=== PATIENT | male | born 1945 | race Caucasian/White ===

== ENCOUNTER → 2016-07-03 | Outpatient (CLI) | payer OTHER, MEDICARE | LOC: BHCLAF 15:30 | PROVIDERS: ATTEND Internal Medicine Cardiovascular Disease | DX: E78.5 Hyperlipidemia, unspecified (principal); I63.9 Cerebral infarction, unspecified; Z95.4 Presence of other heart-valve replacement; Z95.2 Presence of prosthetic heart valve | CPT/HCPCS: 93005-PO ==

== ENCOUNTER → 2016-08-17 | Outpatient (CLI) | payer OTHER, MEDICARE | LOC: BHCLAF 14:45 | PROVIDERS: ATTEND Internal Medicine Cardiovascular Disease | DX: Z95.2 Presence of prosthetic heart valve (principal); Z95.4 Presence of other heart-valve replacement; I38 Endocarditis, valve unspecified | CPT/HCPCS: 93306-PO ==

== ENCOUNTER 2016-09-12 14:33 | Emergency (ER) | payer OTHER, MEDICARE ==
[2016-09-12 14:43] VITALS: TEMP 97.9
[2016-09-12] MEDS ORDERED: NS 1,000 ML IV ONE (14:48)
--- NOTE | 2016-09-12 14:50 | CPEKG ---
Heart Rate: 74 RR Interval: 811 P-R Interval: 216 QRSD Interval: 98 QT Interval: 404 QTC Interval: 449 P [place]: -60 QRS [place]: -2 T Wave [place]: 75 EKG Severity - ABNORMAL ECG - EKG Impression: SINUS OR ECTOPIC ATRIAL RHYTHM EKG Impression: MULTIFORM VENTRICULAR PREMATURE COMPLEXES EKG Impression: PROBABLE LEFT ATRIAL ABNORMALITY Electronically Signed By: Vladimir Douglass 12-Sep-2016 14:54:58
--- NOTE | 2016-09-12 14:54 | EDPHY ---
H & P <Brandt Dias - Last Filed: 09/12/16 16:29> Stated Complaint: slurred speach and confusion per 1.5 hours [employer]STATE [employer] Source: Patient, Family Exam Limitations: No limitations - Medical/Surgical History Hx Asthma: No Hx Chronic Respiratory Disease: No Hx Diabetes: No Hx Cardiac Disease: Yes Hx Renal Disease: No Hx Cirrhosis: No Hx Alcoholism: No Hx HIV/AIDS: No Hx Splenectomy or Spleen Trauma: No Other PMH: heart valve replacement - Family History Significant Family History: No pertinent family hx - Social History Smoking Status: Never smoked Alcohol Use: Sober Drug Use: None <Vladimir Douglass - Last Filed: 09/16/16 15:11> Time Seen by Provider: 09/12/16 14:47 HPI/ROS: CHIEF COMPLAINT: TIA HISTORY OF PRESENT ILLNESS: the patient is a 71-year-old man who is brought to the emergency department by his for TIA symptoms. She states that at 2:00 p.m. around 50 minutes ago he had sudden onset of confusion and slurred speech. His symptoms lasted for about 2 minutes then resolved spontaneously. They came directly here. Currently he is asymptomatic. He did not have any focal weakness numbness or paresthesias. He is currently on Coumadin. 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 He had to have craniotomy for 2 abscess drainage and a hemorrhage decompression. He recovered well from the surgery. He does not have any deficits at baseline. he denies headache. He denies vision changes. He denies chest pain or shortness of breath. No recent fevers or illness. REVIEW OF SYSTEMS: Constitutional: denies: chills, fever, recent illness, recent injury EENTM: denies: blurred vision, double vision, nose congestion Respiratory: denies: cough, shortness of breath Cardiac: denies: chest pain, irregular heart rate, lightheadedness, palpitations Gastrointestinal/Abdominal: denies: abdominal pain, diarrhea, nausea, vomiting, blood streaked stools Genitourinary: denies: dysuria, frequency, hematuria, pain Musculoskeletal: denies: joint pain, muscle pain Skin: denies: lesions, rash, jaundice, bruising Neurological: See HPI Hematologic/Lymphatic: denies: blood clots, easy bleeding, easy bruising Immunologic/allergic: denies: HIV/AIDS, transplant EXAM: GENERAL: Well-appearing, well-nourished and in no acute distress. HEAD: Atraumatic, normocephalic. EYES: Pupils equal round and reactive to light, extraocular movements intact, sclera anicteric, conjunctiva are normal. ENT: TMs normal, nares patent, oropharynx clear without exudates. Moist mucous membranes. NECK: Normal range of motion, supple without lymphadenopathy or JVD. LUNGS: Breath sounds clear to auscultation bilaterally and equal. No wheezes rales or rhonchi. HEART: Regular rate and rhythm without murmurs, rubs or gallops. ABDOMEN: Soft, nontender, normoactive bowel sounds. No guarding, no rebound. No masses appreciated. BACK: No CVA tenderness, no spinal tenderness, step-offs or deformities EXTREMITIES: Normal range of motion, no pitting or edema. No clubbing or cyanosis. NEUROLOGICAL: Cranial nerves II through XII grossly intact. Normal speech, normal gait. 5/5 strength, normal movement in all extremities, normal sensation , normal reflexes, normal peripheral vision. No neglect. NIH stroke score 0 PSYCH: Normal mood, normal affect. SKIN: Warm, dry, normal turgor, no visible rashes or lesions. (Vladimir Douglass) Constitutional: Initial Vital Signs Temperature (C) 36.6 C 09/12/16 14:41 Heart Rate 85 09/12/16 14:41 Respiratory Rate 16 09/12/16 14:41 Blood Pressure 153/97 H 09/12/16 14:41 O2 Sat (%) 96 09/12/16 14:41 O2 Delivery Mode Room Air O2 (L/minute) 2 Allergies/Adverse Reactions: No Known Allergies Allergy (Verified 09/12/16 14:44) Home Medications: Medication Instructions Recorded Warfarin Sodium [Coumadin] 1 tab PO 02/18/11 Statin 12/05/15 Atorvastatin Calcium [Lipitor 10 09/12/16 mg (*)] Enoxaparin [Lovenox 80 MG (*)] 75 mg SQ BID #10 syr 09/12/16 Medical Decision Making Consult/Admit Bed Type: [facility] neuro 1526 <Brandt Dias S - Last Filed: 05/24/17 16:29> <Vladimir Douglass - Last Filed: 09/16/16 15:11> - Diagnostics EKG Interpretation: An EKG obtained and was read and documented in trace view. Please see trace view for full reading and report. Sinus rhythm, no acute ischemic changes, PVC ( Vladimir Douglass) Imaging Results: CT reviewed with Dr. Floyd Bradshaw at 3:13 p.m. shows left sided encephalomalacia, old but nothing acute (Brandt Dias) ED Course/Re-evaluation: Care the patient is assumed from Dr. Douglass at 1500. Patient is not a stroke alert because currently he is asymptomatic. Plan for head CT, protime, electrolytes. 1515: INR noted at 2.28. Patient unintentionally missed a dose of coumadin this past Saturday. States his INR goal is 2.5-3.5, currently no symptoms. 1526: discussed case in detail with j2ee consultant neurologist Dr. Gonzalez; he will see tomorrow in clinic tomorrow. Dr. Gonzalez recommends discharge, bridge with lovenox 1mg/kg q12 hours subcutaneously. Specifically recommended patient safe for discharge, no further imaging at this time in the emergency department. 1530: Discussed with patient and plan which they understand and are in agreement with. Most likely reason for his TIA was subtherapeutic INR with goal between 2.5 and 3.5 with artificial heart valve. (Brandt Dias) Differential Diagnosis: Differential considered including but not limited to TIA, ischemic stroke, intracranial bleed, seizure. (Brandt Dias) - Data Points Laboratory Results: Laboratory Results 09/12/16 14:50 09/12/16 14:50 Medications Given: Discontinued Medications Enoxaparin Sodium (Lovenox) 75 mg SC EDNOW ONE Stop: 09/12/16 15:34 Last Admin: 09/12/16 15:47 Dose: 75 mg Sodium Chloride (Ns) 1,000 mls @ 500 mls/hr IV EDNOW ONE Stop: 09/12/16 16:47 Last Admin: 09/12/16 15:19 Dose: 1,000 mls Departure <Brandt Dias - Last Filed: 09/12/16 16:29> <Vladimir Douglass - Last Filed: 09/16/16 15:11> - Departure Disposition: Home, Routine, Self-Care Clinical Impression: Transient cerebral ischemia Qualifiers: Transient cerebral ischemia type: unspecified Qualified Code(s): G45.9 - Transient cerebral ischemic attack, unspecified Condition: Good Instructions: Enoxaparin (By injection), Transient Ischemic Attack (ED) Additional Instructions: Use the Lovenox heparin shots as instructed until told to discontinue by follow- up neurologist. Please take your Coumadin as prescribed. Referrals: Bogdan Ricci [Primary Care Provider] - As per Instructions Husam Gonzalez DO [Medical Doctor] - 1 day without fail (Dr. Gonzalez's office from Neurology will call you tomorrow morning to arrange a follow-up appointment mid day probably around 1 o'clock in the afternoon.) Prescriptions: Enoxaparin [Lovenox 80 MG (*)] 75 mg SQ BID #10 syr
[2016-09-12 14:59] LABS: % IMMATURE GRANULYOCYTES 0.2 % (0.0-1.1); ABSOLUTE IMMATURE GRANULOCYTES 0.01 10^3/uL (0.00-0.10); ADD DIFF? NO; ADD MORPH? NO; ADD SCAN? NO; ATYPICAL LYMPHOCYTE FLAG 0 (0-99); FRAGMENT RBC FLAG 0 (0-99); HEMATOCRIT 44.9 % (40.0-51.0); HEMOGLOBIN 15.5 g/dL (13.7-17.5); LEFT SHIFT FLG 10 (0-99); LIPEMIA HEMOLYSIS FLAG 90 (0-99); MEAN CELL HEMOGLOBIN CONCENTR. 34.5 g/dL (32.4-36.7); MEAN CELL VOLUME 89.8 fL (81.5-99.8); MEAN PLATELET VOLUME 9.9 fL (8.7-11.7); PLATELET CLUMPS FLAG 0 (0-99); PLATELET COUNT 177 10^3/uL (150-400); RED CELL DISTRIBUTION WIDTH 13.5 % (11.5-15.2)
[2016-09-12 15:10] LABS: INR 2.28 (0.83-1.16); PROTIME(PATIENT) 24.9 SEC (12.0-15.0)
[2016-09-12 15:12] LABS: ANION GAP 13 mEq/L (8-16); CALCIUM 9.2 mg/dL (8.5-10.4); CARBON DIOXIDE 27 mEq/l (22-31); CHLORIDE 101 mEq/L (97-110); CREATININE 0.8 mg/dL (0.7-1.3); GLOMERULAR FILTRATION RATE > 60; GLUCOSE 84 mg/dL (70-100); POTASSIUM 4.4 mEq/L (3.5-5.2); SODIUM 141 mEq/L (134-144)
[2016-09-12] MEDS ORDERED: ENOXAPARIN 80 MG/0.8 ML SYR SC ONE (15:33)
[2016-09-12 16:33] VITALS: BP 150/92; PULSE 70; RESP 18; O2SAT 97
== END 2016-09-12 15:55 | disposition home or self-care (01) ==
LOC: CED 14:33
DX: G45.9 Transient cerebral ischemic attack, unspecified (principal); Z79.01 Long term (current) use of anticoagulants
CPT/HCPCS: 70450; 93005; 96360; 96372; 99285; J1650; 80048-PO; 82947-QW; 85025-PO; 85610-PO; 85730-PO

== ENCOUNTER → 2017-08-12 | Outpatient (CLI) | payer OTHER, MEDICARE ==
[~2017-08-12] MED LIST: GADOBUTROL 10 ML VIAL IVP ONE
== END ==
LOC: FIMAGING 15:05
PROVIDERS: ATTEND Family Medicine
DX: I63.9 Cerebral infarction, unspecified (principal); I67.82 Cerebral ischemia; G31.9 Degenerative disease of nervous system, unspecified
CPT/HCPCS: 70553; A9585

== ENCOUNTER 2017-09-15 10:06 | Emergency (ER) | payer OTHER, MEDICARE ==
[2017-09-15] MEDS ORDERED: NS 1,000 ML IV ONE (10:15)
[2017-09-15 10:26] LABS: PLATELET COUNT 161 10^3/uL (150-400)
--- NOTE | 2017-09-15 10:29 | CPEKG ---
Heart Rate: 63 RR Interval: 952 P-R Interval: 188 QRSD Interval: 102 QT Interval: 424 QTC Interval: 435 P [place]: 0 QRS [place]: -46 T Wave [place]: 79 EKG Severity - ABNORMAL ECG - EKG Impression: SINUS RHYTHM EKG Impression: MULTIFORM VENTRICULAR PREMATURE COMPLEXES EKG Impression: LEFT AXIS DEVIATION EKG Impression: No acute ST T-wave changes to suggest ischemia or infarct. Impression EKG Impression: abnormal, nonspecific EKG. Electronically Signed By: Sameer Orozco 18-Sep-2017 11:57:48
[2017-09-15 10:46] LABS: INR 4.16 (0.83-1.16); PROTIME(PATIENT) 38.9 SEC (12.0-15.0)
--- NOTE | 2017-09-15 11:32 | EDPHY ---
H & P Time Seen by Provider: 09/15/17 10:11 HPI/ROS: CHIEF COMPLAINT: Confusion HISTORY OF PRESENT ILLNESS: Patient brought in by for increased confusion. She states that patient has had significant memory problems for at least a year but worse over the last 6 months. She was recently in [place] and had arranged for patient to get"seniors helping seen years"to their house. Since last Saturday patient was not allowing these home healthcare personnel in the house. He seemed to be getting more paranoid talking about"Agent Swift "and saying that "Kirk Pedroza" ([place] sherrif) was going to rest somebody. He had decreased oral intake that was continue drink fluids per . She returned on Saturday and since then he has been easily frustrated, not eating much food. This morning he was quite confused and again started complaining about Agent Swift and the vehicle body sander. When patient asked why he is in the emergency department unable to say why. His responses are articulate but somewhat tangential and confabulate it. He denies headache, vision changes, speech changes, weakness, dizziness, chest pain, shortness of breath, abdominal pain, nausea, vomiting, diarrhea. He has not had any recent illnesses. He has had no falls. He did get an MRI a couple months ago and is scheduled for neuropsych testing at [facility] on Saturday. REVIEW OF SYSTEMS: Constitutional: No fever, no chills. Eyes: No discharge. ENT: No sore throat. Cardiovascular: No chest pain, no palpitations. Respiratory: No cough, no shortness of breath. Gastrointestinal: No abdominal pain, no vomiting. Genitourinary: No dysuria. Musculoskeletal: No back pain. Skin: No rashes. Neurological: No headache. General Appearance: Alert, no distress. Eyes: Pupils equal and round no pallor or injection. ENT, Mouth: Mucous membranes moist. Respiratory: There are no retractions, lungs are clear to auscultation. Cardiovascular: Regular rate and rhythm. Gastrointestinal: Abdomen is soft and nontender, no masses, bowel sounds normal. Neurological: Cranial nerves intact, normal strength sensation throughout. Walks with limp at baseline. Skin: Warm and dry, no rashes. Musculoskeletal: Neck is supple nontender. Extremities are symmetrical, full range of motion, no edema. Psychiatric: Patient is oriented to self only, not date, month, year or president. He is awake and alert. Medical/surgical history: BPH, high cholesterol, aortic and mitral valve replacement in 2002. Craniotomy in 2009 after septic emboli and intercranial hemorrhage. Thought to be from endocarditis. Also knee surgeries, hernia surgery. Jolene Nicole is primary care physician, neurologist Dr. Gregg in [place], Social history: No tobacco, no ETOH. Smoking Status: Never smoked Constitutional: Initial Vital Signs Temperature (C) 36.5 C 09/15/17 10:10 Heart Rate 77 09/15/17 10:10 Respiratory Rate 16 09/15/17 10:10 Blood Pressure 153/96 H 09/15/17 10:10 O2 Sat (%) 96 09/15/17 10:10 O2 Delivery Mode Room Air Allergies/Adverse Reactions: No Known Allergies Allergy (Verified 09/15/17 10:15) Home Medications: Medication Instructions Recorded Warfarin Sodium [Coumadin] 1 tab PO 02/18/11 Atorvastatin Calcium [Lipitor 10 09/12/16 mg (*)] Tamsulosin HCl 09/15/17 Medical Decision Making - Diagnostics EKG Interpretation: EKG shows sinus rhythm with a rate of 63. Some atrial abnormality and left axis deviation. Also noted are frequent PVCs. No acute ST T-wave changes to suggest ischemia or infarct. Impression abnormal, nonspecific EKG. Imaging Results: Imaging Impressions Head CT 09/15/17 10:15 Impression: Stable noncontrast CT of the brain. Large area of cystic encephalomalacia in the left parietal region post craniotomy. Results called to Dr. Sophie parks at 10:45 AM at the time of the interpretation. ED Course/Re-evaluation: 11:20 re-eval, discussed test results. Patient up to the bathroom unable to give urine sample. Multiple re-evaluations, patient taking p.o.. Occasionally getting irritable and inpatient. Differential Diagnosis: Differential diagnosis includes but is not limited to CVA, TIA, dementia, encephalopathy, hypoglycemia, infectious etiology. After evaluation no acute medical condition identified and suspect patient is simply presenting with worsening dementia of unknown type. Recent stressors include out of town and has had strangers in the house. He is at his baseline neurologically, no signs of infection, electrolyte abnormality, arrhythmia, new neurologic deficit or intoxication. No delirium. Patient does have neuropsych testing scheduled in a few days and encouraged to make sure he gets to that visit. She feels that she can handle him safely at home until such time as he needs to go to a assisted care facility. She has been looking at [facility] in [place]. They understand return precautions. Stable for discharge. - Data Points Laboratory Results: Laboratory Results 09/15/17 10:19 09/15/17 10:19 09/15/17 09/15/17 09/15/17 10:44 10:29 10:19 WBC RBC Hgb Hct MCV MCH MCHC RDW Plt Count MPV Neut % (Auto) Lymph % (Auto) [place] % (Auto) Eos % (Auto) Baso % (Auto) Nucleat RBC Rel Count Absolute Neuts (auto) Absolute Lymphs (auto) Absolute Monos (auto) Absolute Eos (auto) Absolute Basos (auto) Absolute Nucleated RBC Immature Gran % Immature Gran # PT 38.9 SEC H SEC (12.0-15.0) INR 4.16 H (0.83-1.16) Sodium 141 mEq/L mEq/L (135-145) Potassium 3.8 mEq/L mEq/L (3.3-5.0) Chloride 101 mEq/L mEq/L (97-110) Carbon Dioxide 27 mEq/l mEq/l (22-31) Anion Gap 13 mEq/L mEq/L (8-16) BUN 18 mg/dL mg/dL (7-23) Creatinine 0.9 mg/dL mg/dL (0.7-1.3) Estimated GFR > 60 Glucose 101 mg/dL H mg/dL (70-100) POC Glucose 78 mg/dL mg/dL (70-100) Calcium 9.6 mg/dL mg/dL (8.5-10.4) Total Bilirubin 1.6 mg/dL H mg/dL (0.1-1.4) Conjugated Bilirubin 0.3 mg/dL mg/dL (0.0-0.5) Unconjugated Bilirubin 1.3 mg/dL H mg/dL (0.0-1.1) AST 32 IU/L IU/L (17-59) ALT 19 IU/L L IU/L (21-72) Alkaline Phosphatase 64 IU/L IU/L (38-126) Total Protein 7.4 g/dL g/dL (6.3-8.2) Albumin 4.1 g/dL g/dL (3.5-5.0) 09/15/17 10:19 WBC 7.48 10^3/uL 10^3/uL (3.80-9.50) RBC 5.08 10^6/uL 10^6/uL (4.40-6.38) Hgb 15.6 g/dL g/dL (13.7-17.5) Hct 45.4 % % (40.0-51.0) MCV 89.4 fL fL (81.5-99.8) MCH 30.7 pg pg (27.9-34.1) MCHC 34.4 g/dL g/dL (32.4-36.7) RDW 12.9 % % (11.5-15.2) Plt Count 161 10^3/uL 10^3/uL (150-400) MPV 10.0 fL fL (8.7-11.7) Neut % (Auto) 77.0 % H % (39.3-74.2) Lymph % (Auto) 12.2 % L % (15.0-45.0) [place] % (Auto) 9.2 % % (4.5-13.0) Eos % (Auto) 0.8 % % (0.6-7.6) Baso % (Auto) 0.4 % % (0.3-1.7) Nucleat RBC Rel Count 0.0 % % (0.0-0.2) Absolute Neuts (auto) 5.76 10^3/uL 10^3/uL (1.70-6.50) Absolute Lymphs (auto) 0.91 10^3/uL L 10^3/uL (1.00-3.00) Absolute Monos (auto) 0.69 10^3/uL 10^3/uL (0.30-0.80) Absolute Eos (auto) 0.06 10^3/uL 10^3/uL (0.03-0.40) Absolute Basos (auto) 0.03 10^3/uL 10^3/uL (0.02-0.10) Absolute Nucleated RBC 0.00 10^3/uL 10^3/uL (0-0.01) Immature Gran % 0.4 % % (0.0-1.1) Immature Gran # 0.03 10^3/uL 10^3/uL (0.00-0.10) PT INR Sodium Potassium Chloride Carbon Dioxide Anion Gap BUN Creatinine Estimated GFR Glucose POC Glucose Calcium Total Bilirubin Conjugated Bilirubin Unconjugated Bilirubin AST ALT Alkaline Phosphatase Total Protein Albumin Medications Given: Discontinued Medications Sodium Chloride (Ns) 1,000 mls @ 0 mls/hr IV ONCE ONE; Wide Open PRN Reason: Protocol Stop: 09/15/17 10:16 Last Admin: 09/15/17 10:25 Dose: 1,000 mls Point of Care Test Results: 09/15/17 10:44 POC Glucose 78 Departure - Departure Disposition: Home, Routine, Self-Care Clinical Impression: Dementia Qualifiers: Dementia type: unspecified type Dementia behavioral disturbance: with behavioral disturbance Qualified Code(s): F03.91 - Unspecified dementia with behavioral disturbance Condition: Fair Instructions: Dementia (ED) Additional Instructions: Hold 1 dose of Coumadin this evening. Tomorrow take the lower of the 2 doses and then see lab on Saturday for INR recheck. Your level today was 4. Referrals: Jolene Nicole MD [Primary Care Provider] - As per Instructions
[2017-09-15 12:30] VITALS: BP 156/93
== END 2017-09-15 12:15 | disposition home or self-care (01) ==
LOC: CED 10:06
DX: F03.91 Unspecified dementia, unspecified severity, with behavioral disturbance (principal); E86.9 Volume depletion, unspecified; Z79.01 Long term (current) use of anticoagulants
CPT/HCPCS: 70450-PO; 80048-PO; 80076-PO; 85025-PO; 85610-PO

== ENCOUNTER 2017-09-22 11:38 | Emergency (ER) | payer OTHER, MEDICARE ==
--- NOTE | 2017-09-22 11:47 | EDPHY ---
H & P Stated Complaint: behavioral changes worsening x 6 months - Personal History Current Tetanus/Diphtheria Vaccine: No Current Tetanus Diphtheria and Acellular Pertussis (TDAP): No - Medical/Surgical History Hx Asthma: No Hx Chronic Respiratory Disease: No Hx Diabetes: No Hx Cardiac Disease: Yes Hx Renal Disease: No Hx Cirrhosis: No Hx Alcoholism: No Hx HIV/AIDS: No Hx Splenectomy or Spleen Trauma: No Other PMH: Aortic/Mitral heart valve replacement 2002. bilateral hernia inguinal. brain aneurysm surgery 2009 - Social History Smoking Status: Never smoked Time Seen by Provider: 09/22/17 11:46 Constitutional: Initial Vital Signs Temperature (C) 36.7 C 09/22/17 11:42 Heart Rate 78 09/22/17 11:42 Respiratory Rate 16 09/22/17 11:42 Blood Pressure 156/96 H 09/22/17 11:42 O2 Sat (%) 9 L 09/22/17 11:42 O2 Delivery Mode Room Air Allergies/Adverse Reactions: No Known Allergies Allergy (Verified 09/15/17 10:15) Home Medications: Medication Instructions Recorded Warfarin Sodium [Coumadin] 1 tab PO 02/18/11 Atorvastatin Calcium [Lipitor 10 09/12/16 mg (*)] Tamsulosin HCl 09/15/17 Medical Decision Making ED Course/Re-evaluation: CHIEF COMPLAINT: Violent behavior for 6 months HISTORY OF PRESENT ILLNESS: The patient is an anticoagulated (Coumadin) 72 y/o male with a history of an aortic/mitral heart valve replacement and brain aneurysm surgery (8 years ago) arriving with his who states that her has been more violent for the past 6 months. Per his , the patient has had worsening aggression and has been seen by Dr. Gregg, a neurologist, as well as Dr. Pandya for a psychometric evaluation. He had a brain MRI in July which revealed dementia. This week the patient has been throwing objects and grabbing his . His does not feel safe at home and states that there have not been "good days" for several weeks. The patient denies headache, chest pain, shortness of breath, abdominal pain, urinary or bowel complaints, fever, numbness, paresthesias. REVIEW OF SYSTEMS: A 10 point review of systems was performed and is negative with the exception of the elements mentioned in the history of present illness. PHYSICAL EXAM: HR, BP, O2 Sat, RR. Temp noted General Appearance: Alert, well hydrated, appropriate, and non-toxic appearing. Head: Atraumatic without scalp tenderness or obvious injury Eyes: Pupils equal, round, reactive to light and accommodation, EOMI, no trauma , no injection. Ears: Clear bilaterally, no perforation, normal landmarks Nose: Atraumatic, no rhinorrhea, clear. Throat: There is no erythema or exudates, no lesions, normal tonsils, mucus membranes moist. Neck: Supple, nontender, no lymphadenopathy. Respiratory: No retractions, no distress, no wheezes, and no accessory muscle use. Lungs are clear to auscultation bilaterally. Cardiovascular: Regular rate and rhythm, no murmurs, rubs, or gallops. Good capillary refill all extremities. Gastrointestinal: Abdomen is soft, nontender, non-distended, no masses, no rebound, no guarding, no peritoneal signs. Musculoskeletal: Normal active ROM of all extremities, atraumatic. Neurological: Emotionally labile. Alert and interactive. The patient has normal DTRs and non-focal cranial nerves, motor, sensory, and cerebellar exam. Skin: No rashes, good turgor, no nodules on palpation. Past medical history: Dementia Past surgical history: Aortic/Mitral heart valve replacement (2002), bilateral hernia inguinal. brain aneurysm surgery (2009) Family history: Denies Social history: at bedside, retired hvac installation technician DIFFERENTIAL DIAGNOSIS: The differential diagnosis for the patient's altered mental status included but was not limited to dementia, hypoglycemia, infectious process, electrolyte abnormality, head injury, neurologic process, anemia, cardiac process, and intoxicants. MEDICAL DECISION MAKING: The patient is an anticoagulated (Coumadin) 72 y/o male with a history of an aortic/mitral heart valve replacement and brain aneurysm surgery (8 years ago) arriving with his who states that her has been more violent for the past 6 months. He has been seen by multiple physicians regarding this worsening dementia. His no longer feels safe at home. Imaging and laboratory studies are not indicated at this time. 1155: I consulted with case management regarding this patient. She will look into placement at a memory care facility 1320: I consulted with case management regarding this patient; she is still looking for direct placement to a memory care. 1347: I consulted with case management who reports that the patient's will go look at a memory care facility for a possible direct admit. If the patient is unable to be direct admitted today, his does feel comfortable going home with patient pending admission to a memory care facility. 1500: Patient care has been turned over Dr. Pierson at shift change. (Job Augustine) Other Provider: I assumed care of the patient 3pm pending placment. Case management reports to me at 4:15 p.m. That the patient will be discharged home and go to a memory care unit tomorrow for likely long-term placement. The patient's is requesting to take him home this evening and is comfortable doing so. (Remi Pierson) - Data Points Laboratory Results: Laboratory Results 09/22/17 12:05 09/22/17 12:05 09/22/17 09/22/17 12:05 12:05 WBC 6.51 10^3/uL 10^3/uL (3.80-9.50) RBC 5.29 10^6/uL 10^6/uL (4.40-6.38) Hgb 16.3 g/dL g/dL (13.7-17.5) Hct 49.1 % % (40.0-51.0) MCV 92.8 fL fL (81.5-99.8) MCH 30.8 pg pg (27.9-34.1) MCHC 33.2 g/dL g/dL (32.4-36.7) RDW 13.4 % % (11.5-15.2) Plt Count 197 10^3/uL 10^3/uL (150-400) MPV 10.2 fL fL (8.7-11.7) Neut % (Auto) 77.5 % H % (39.3-74.2) Lymph % (Auto) 12.4 % L % (15.0-45.0) [place] % (Auto) 8.4 % % (4.5-13.0) Eos % (Auto) 0.8 % % (0.6-7.6) Baso % (Auto) 0.6 % % (0.3-1.7) Nucleat RBC Rel Count 0.0 % % (0.0-0.2) Absolute Neuts (auto) 5.04 10^3/uL 10^3/uL (1.70-6.50) Absolute Lymphs (auto) 0.81 10^3/uL L 10^3/uL (1.00-3.00) Absolute Monos (auto) 0.55 10^3/uL 10^3/uL (0.30-0.80) Absolute Eos (auto) 0.05 10^3/uL 10^3/uL (0.03-0.40) Absolute Basos (auto) 0.04 10^3/uL 10^3/uL (0.02-0.10) Absolute Nucleated RBC 0.00 10^3/uL 10^3/uL (0-0.01) Immature Gran % 0.3 % % (0.0-1.1) Immature Gran # 0.02 10^3/uL 10^3/uL (0.00-0.10) Sodium 145 mEq/L mEq/L (135-145) Potassium 5.0 mEq/L mEq/L (3.3-5.0) Chloride 102 mEq/L mEq/L (97-110) Carbon Dioxide 29 mEq/l mEq/l (22-31) Anion Gap 14 mEq/L mEq/L (8-16) BUN 24 mg/dL H mg/dL (7-23) Creatinine 0.9 mg/dL mg/dL (0.7-1.3) Estimated GFR > 60 Glucose 125 mg/dL H mg/dL (70-100) Calcium 9.7 mg/dL mg/dL (8.5-10.4) Total Bilirubin 1.8 mg/dL H mg/dL (0.1-1.4) Conjugated Bilirubin 0.5 mg/dL mg/dL (0.0-0.5) Unconjugated Bilirubin 1.3 mg/dL H mg/dL (0.0-1.1) AST 36 IU/L IU/L (17-59) ALT 37 IU/L IU/L (21-72) Alkaline Phosphatase 71 IU/L IU/L (38-126) Total Protein 8.0 g/dL g/dL (6.3-8.2) Albumin 5.0 g/dL g/dL (3.5-5.0) Lipase 266 IU/L IU/L (23-300) Departure - Departure Disposition: Home, Routine, Self-Care Clinical Impression: Dementia Qualifiers: Dementia type: unspecified type Dementia behavioral disturbance: with behavioral disturbance Qualified Code(s): F03.91 - Unspecified dementia with behavioral disturbance Condition: Good Instructions: Dementia (ED) Additional Instructions: 1. Follow-up with an inpatient memory care facility. 2. Follow-up with your primary doctor within 72 hours. 3. Return to the Emergency Department for fever, chest pain, shortness of breath , increasing pain or other worsening of condition. Referrals: Jolene Nicole MD [Primary Care Provider] - As per Instructions Report Scribed for: Job Augustine Report Scribed by: Candace Krause Date of Report: 09/22/17 Time of Report: 11:48
[2017-09-22 12:25] LABS: PLATELET COUNT 197 10^3/uL (150-400)
[2017-09-22 16:38] VITALS: BP 157/99
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
== END 2017-09-22 16:37 | disposition home or self-care (01) ==
DX: F03.91 Unspecified dementia, unspecified severity, with behavioral disturbance (principal); Z79.01 Long term (current) use of anticoagulants